=== PATIENT | male | born 1975 | race Two or more races ===

== ENCOUNTER 2020-08-08 08:40 | Outpatient (CLI) | payer BC ==
[2020-08-08 10:40] LABS: BASOPHILS % (AUTO) 0.2 % (0.0-2.0); EOSINOPHILS % (AUTO) 1.7 % (0.0-6.0); HEMATOCRIT 49 % (39-51); HEMOGLOBIN 16.7 g/dL (13.5-17.5); LYMPHOCYTES # (AUTO) 1.4 /CMM (0.8-4.8); LYMPHOCYTES % (AUTO) 24.7 % (20.0-44.0); MEAN CORPUSCULAR HGB CONC 34 g/dl (31.0-36.0); MEAN CORPUSCULAR VOLUME 89 fL (80-96); MONOCYTES # (AUTO) 0.5 /CMM (0.1-1.30); MONOCYTES % (AUTO) 9.3 % (2.0-12.0); NEUTROPHILS # (AUTO) 3.5 /CMM (1.8-8.9); NEUTROPHILS % (AUTO) 64.1 % (43.0-81.0); PLATELET COUNT (AUTO) 193 /CMM (150-450); RED BLOOD CELL COUNT(AUTO) 5.48 MIL/uL (4.5-6.0); WHITE BLOOD COUNT (AUTO) 5.5 K/uL (4.3-11.0)
[2020-08-08 11:39] LABS: BILIRUBIN,TOTAL 2.7 mg/dL (0.2-1.0); CALCIUM, SERUM 8.9 mg/dL (8.5-10.1); POTASSIUM 3.9 mmol/L (3.5-5.1); PROSTATE SPECIFIC ANTIGEN SCR 1.79 ng/mL (0.00-4.00); THYROID STIMULATING HORMONE 1.514 uIU/mL (0.358-3.74); TOTAL PROTEIN, SERUM 7.5 g/dL (6.4-8.2)
== END 2020-08-08 23:59 | disposition home or self-care (01) ==
LOC: MSC 08:40
PROVIDERS: ATTEND Internal Medicine
DX: Z00.00 Encounter for general adult medical examination without abnormal findings (principal); R63.4 Abnormal weight loss; T78.40XA Allergy, unspecified, initial encounter; N41.1 Chronic prostatitis; K40.90 Unilateral inguinal hernia, without obstruction or gangrene, not specified as recurrent
CPT/HCPCS: 36415; 80053-TC; 80061-TC; 84153-TC; 84443-TC; 85025-TC

== ENCOUNTER 2020-11-14 10:24 | Outpatient (CLI) | payer BC | END 2020-11-14 23:59 | disposition home or self-care (01) | LOC: MSC 10:24 | PROVIDERS: ATTEND Internal Medicine | DX: S69.92XD Unspecified injury of left wrist, hand and finger(s), subsequent encounter (principal); W22.01XD Walked into wall, subsequent encounter; R63.4 Abnormal weight loss; N41.1 Chronic prostatitis; K40.90 Unilateral inguinal hernia, without obstruction or gangrene, not specified as recurrent; J30.2 Other seasonal allergic rhinitis | CPT/HCPCS: 73130-TC ==

== ENCOUNTER → 2020-11-16 | Outpatient (CLI) | payer BC | END | disposition home or self-care (01) | LOC: MSC 13:45 | PROVIDERS: ATTEND Internal Medicine | DX: S66.912D Strain of unspecified muscle, fascia and tendon at wrist and hand level, left hand, subsequent encounter (principal); S69.92XD Unspecified injury of left wrist, hand and finger(s), subsequent encounter; W22.01XD Walked into wall, subsequent encounter; J30.2 Other seasonal allergic rhinitis; N41.1 Chronic prostatitis; K40.90 Unilateral inguinal hernia, without obstruction or gangrene, not specified as recurrent ==